=== PATIENT | male | born 1940 | race Caucasian/White ===

== ENCOUNTER 2022-11-05 09:33 | Outpatient (CLI) | payer MEDICARE ==
[2022-11-05] MEDS ORDERED: Iopamidol 300 61% 100 ML VIAL FS ONE (09:53)
== END 2022-11-05 09:34 | disposition home or self-care (01) ==
LOC: CSHCT 09:33
PROVIDERS: ATTEND Physician Assistant Medical
DX: R19.8 Other specified symptoms and signs involving the digestive system and abdomen (principal); R15.9 Full incontinence of feces; R10.84 Generalized abdominal pain; R11.0 Nausea; K86.89 Other specified diseases of pancreas; N20.0 Calculus of kidney; I71.43 Infrarenal abdominal aortic aneurysm, without rupture
CPT/HCPCS: 74177; 82565